=== PATIENT | male | born 1970 | race American Indian/Alaskan Native ===

== ENCOUNTER 2022-05-19 16:31 | Emergency (ER) | payer OTHER ==
[2022-05-19 16:36] VITALS: TEMP 98; BMI 32.3
[2022-05-19] MEDS ORDERED: ASPIRIN 81 MG CHEWABLE TABLETS PO ONE (17:07)
[2022-05-19 17:23] LABS: BASO % 0.5 % (0-2.0); EOS % 1.6 % (0-4.5); HEMATOCRIT 43.1 % (35.4-49); HEMOGLOBIN 14.7 GM/dL (11.7-16.9); LYMPH % 26.9 % (8-40); MCH 29.7 pg (25.7-33.7); MCHC 34.1 g/dl (32.0-35.9); MEAN PLT VOLUME 9.1 fl (7.5-11.1); MONO % 6.9 % (3.8-10.2); NEUT % 64.1 % (42.8-82.8); PLATELET COUNT 215 10^3/uL (134-434); RBC 4.95 M/mm3 (4.00-5.60); WHITE BLOOD COUNT 9.3 K/mm3 (4.0-10.0)
[2022-05-19] MEDS ORDERED: HEPARIN NA (PORCINE) 5,000 UNITS/ML 1ML VIAL ONE (17:29)
[2022-05-19] MEDS ORDERED: TICAGRELOR 90 MG TABLET PO ONE (17:29)
[2022-05-19] MEDS ORDERED: ASPIRIN 81 MG CHEWABLE TABLETS ONE (17:29)
[2022-05-19] MEDS ORDERED: TICAGRELOR 60 MG TABLET PO ONE (17:30)
[2022-05-19] MEDS ORDERED: HEPARIN NA (PORCINE) 5,000 UNITS/ML 1ML VIAL IVPUSH ONE (17:30)
[2022-05-19 17:31] LABS: INR 1.3 (0.83-1.09)
[2022-05-19 17:34] LABS: ACTIVATED PTT 35.6 SECONDS (25.2-36.5)
[2022-05-19 17:41] LABS: ALBUMIN 3.7 g/dl (3.4-5.0); BLOOD UREA NITROGEN 12.6 mg/dL (7-18); CALCIUM 8.9 mg/dL (8.5-10.1); MAGNESIUM 2.1 mg/dL (1.8-2.4)
[2022-05-19 17:44] LABS: CREATININE 0.9 mg/dL (0.55-1.3)
[2022-05-19 17:46] LABS: BILIRUBIN,TOTAL 1.1 mg/dL (0.2-1); TOT PROT 6.8 g/dl (6.4-8.2)
[2022-05-19 17:55] VITALS: BP 96/71; PULSE 74; RESP 19
== END 2022-05-19 18:00 | disposition short-term general hospital (02) ==
LOC: JER 16:31
PROC: 3E033GC Introduction of Other Therapeutic Substance into Peripheral Vein, Percutaneous Approach (ICD-10-PCS; principal; 2022-05-19)
DX: I21.3 ST elevation (STEMI) myocardial infarction of unspecified site (principal)
CPT/HCPCS: 0241U-QW; 36415; 71046-TC-FY; 80053; 82550; 83735; 84484; 85025; 85610; 85730; 93005; 93010; 99291; J1644